=== PATIENT | female | born 1965 | race Caucasian/White ===

== ENCOUNTER → 2023-03-24 14:52 | Outpatient (REF) | payer OTHER, SELFPAY | LOC: MRI 3T 14:52 | PROVIDERS: ATTENDING PHYSICIAN Podiatrist Foot & Ankle Surgery; FAMILY PHYSICIAN Physician Assistant Medical | DX: D49.2 Neoplasm of unspecified behavior of bone, soft tissue, and skin (principal); M79.671 Pain in right foot | CPT/HCPCS: 73718 ==

== ENCOUNTER → 2023-04-13 15:45 | Outpatient (REF) | payer OTHER, SELFPAY | LOC: MRI 3T 15:45 | PROVIDERS: ATTENDING PHYSICIAN Physician Assistant Surgical; FAMILY PHYSICIAN Physician Assistant Medical | DX: M54.16 Radiculopathy, lumbar region (principal); M54.50 Low back pain, unspecified | CPT/HCPCS: 72158; A9575 ==

== ENCOUNTER 2023-05-21 06:22 | Day surgery (SDC) | payer OTHER, SELFPAY ==
[2023-05-01 09:05] LABS: Hematocrit 39.1 % (37.0-47.0); Hemoglobin 13.3 g/dL (12.0-16.0); Mean Corpuscular Hgb 31.1 pg (27.0-31.0); Mean Corpuscular Volume 91.6 fL (81.0-99.0); Mean Platelet Volume 9.9 fL (7.4-10.4); Platelet Count 265 10^3/uL (130-400); Red Blood Cell Count 4.27 10^6/uL (4.20-5.40); Red Cell Dist. Width 13.2 % (11.5-14.5); White Blood Cell Count 6.7 10^3/uL (4.8-10.8)
[2023-05-01 09:27] LABS: Blood Urea Nitrogen 21 mg/dl (7-17); Calcium 9.6 mg/dl (8.4-10.2); Carbon Dioxide 27 mmol/L (22-30); Chloride 101 mmol/L (98-107); Glucose 89 mg/dl (70-99); Potassium 4.2 mmol/L (3.5-5.1); Sodium 137 mmol/L (135-145); eGFR > 60.00
[2023-05-01 10:37] VITALS: BMI 24.5
[2023-05-21 12:14] VITALS: BP 152/96; BMI 24.5
[2023-05-21] MEDS: NORMOSOL-R 1000 IV (12:28)
[2023-05-21 14:12] VITALS: BP 110/72
[2023-05-21 14:15] VITALS: BP 111/73
[2023-05-21 14:30] VITALS: BP 135/94
== END 2023-05-21 15:15 | disposition home or self-care (01) ==
LOC: SDS 06:22
PROVIDERS: ATTENDING PHYSICIAN Podiatrist Foot & Ankle Surgery; FAMILY PHYSICIAN Physician Assistant Medical
DX: M72.2 Plantar fascial fibromatosis (principal); D49.2 Neoplasm of unspecified behavior of bone, soft tissue, and skin
CPT/HCPCS: 28043; 88304; 36415; 80048; 85027

== ENCOUNTER → 2023-07-29 07:32 | Outpatient (REF) | payer OTHER, SELFPAY | LOC: WDC 07:32 | PROVIDERS: ATTENDING PHYSICIAN Obstetrics & Gynecology | DX: Z12.31 Encounter for screening mammogram for malignant neoplasm of breast (principal) | CPT/HCPCS: 77063; 77067 ==

== ENCOUNTER → 2024-12-21 15:19 | Outpatient (REF) | payer OTHER, SELFPAY | LOC: WDC 15:19 | PROVIDERS: ATTENDING PHYSICIAN Physician Assistant Medical | DX: Z12.31 Encounter for screening mammogram for malignant neoplasm of breast (principal) | CPT/HCPCS: 77063; 77067 ==